=== PATIENT | male | born 1975 | race Caucasian/White ===

== ENCOUNTER 2020-11-11 21:03 | Inpatient (IN) | payer MEDICARE, MEDICAID ==
[~2020-11-11] VITALS: Ht 170.2 cm; Wt 112.7 kg
--- NOTE | 2020-11-11 21:37 | NUR ---
PT BIB EMS AND WAS TOLD INITIAL K+ WAS 6
--- NOTE | 2020-11-11 21:54 | NUR ---
IRMA, CARE PROVIDER, CALLING FOR UPDATE.
[2020-11-11] MEDS ORDERED: acetaminophen 325mg tablet PO PRN (22:35)
[2020-11-11] MEDS ORDERED: ondansetron/PF 4mg/2ml inj IV PRN (22:35)
--- NOTE | 2020-11-11 23:13 | NUR ---
PT UNABLE TO PROVIDE MED REQ & INFO WAS NOT IN THE PAPERWORK FROM [facility]. PT'S MACHINE HELPER IS AT WORK AND DOES NOT HAVE THIS INFO. PHARMACY UPDATED.
--- NOTE | 2020-11-11 23:17 | NUR ---
IRMA MANAGER SOFTWARE # [id number]
--- NOTE | 2020-11-11 23:20 | NUR ---
dr. seals updated regarding pt's med req issue- pt's longwall headgate operator will call back from [phone] tomorrow with list.
--- NOTE | 2020-11-12 00:31 | NUR ---
BG 106
[2020-11-12] MEDS: traMADol 50MG tablet PO PRN ×2 (01:39→19:43)
[2020-11-12] MEDS ORDERED: CARV-50 PO (01:45)
[2020-11-12] MEDS ORDERED: ONDA4TAB6 PO (01:45)
[2020-11-12] MEDS ORDERED: DOXA2TAB2 PO (01:45)
[2020-11-12] MEDS ORDERED: HUM7525 SQ (01:45)
[2020-11-12] MEDS ORDERED: FLUO-12 PO (01:45)
[2020-11-12] MEDS ORDERED: INSU300I3 (01:45)
[2020-11-12] MEDS ORDERED: SYN0.088T PO (01:45)
--- NOTE | 2020-11-12 01:47 | NUR ---
MED REQ COMPLETED
[2020-11-12] MEDS ORDERED: heparin 1,000unit/ml 10ml vial 10 ML IV ONE ×3 (03:05→18:25)
[2020-11-12] MEDS ORDERED: heparin 1,000 units/ml 10ml inj IV ONE ×4 (03:05→18:25)
[2020-11-12] MEDS ORDERED: heparin 1,000 units/ml 10ml inj HE ONE ×4 (03:10→18:30)
[2020-11-12 04:53] LABS: BASOPHILS # (AUTO) 0.1 X10'3 (0-0.2); BASOPHILS % (AUTO) 1.6 % (0-1); EOSINOPHILS # (AUTO) 0.3 X10'3 (0-0.9); EOSINOPHILS % (AUTO) 3.7 % (0-6); LYMPHOCYTES # (AUTO) 1.5 X10'3 (1.1-4.8); LYMPHOCYTES % (AUTO) 20.6 % (21-51); MEAN CORPUSCULAR HEMOGLOBIN 30.4 PG (27.0-31.0); MEAN CORPUSCULAR HGB CONC 32.5 g/dL (33.0-36.5); MEAN CORPUSCULAR VOLUME 93.5 FL (78-98); MEAN PLATELET VOLUME 7.9 FL (7.4-10.4); MONOCYTES % (AUTO) 12.9 % (2-12); NEUTROPHILS # (AUTO) 4.5 X10'3 (1.8-7.7); NEUTROPHILS % (AUTO) 61.2 % (42-75); PLATELET COUNT 219 X10'3 (140-440); RED BLOOD COUNT 3.63 X10'6 (4.70-6.10); RED CELL DISTRIBUTION WIDTH 19.1 % (11.5-14.5); WHITE BLOOD COUNT 7.4 X10'3 (4.5-11.0)
[2020-11-12 05:05] LABS: ALBUMIN 1.9 G/DL (3.4-5.0); ANION GAP 4 (8-16); BLOOD UREA NITROGEN 54 MG/DL (7-18); BUN/CREATININE RATIO 8.8 (5.4-32.0); CALCIUM 8.8 MG/DL (8.5-10.1); CHLORIDE 99 MMOL/L (99-107); CREATININE 6.12 MG/DL (0.60-1.10); GLUCOSE 105 MG/DL (70-104); POTASSIUM 5.3 MMOL/L (3.5-5.1); SODIUM 135 MMOL/L (135-145); TOTAL CARBON DIOXIDE 31.6 MMOL/L (24-32); eGFR 10 ML/MIN
[2020-11-12 05:23] LABS: ANISOCYTOSIS 2+; PLATELET ESTIMATE NORMAL; SCHISTOCYTES FEW
--- NOTE | 2020-11-12 08:15 | NUR ---
Dr Jones called asking why the pt wasn't admitted to a room yet as he needs dialysis today. Let him know they are working on it. He said to call the dialysis nurse when he is heading to a room. Spoke with Jess, nursing supervisor film processing regarding this and she said that it will be at least 2 1/2 hours before there will be a bed available. They are aware that the pt needs dialysis today.
--- NOTE | 2020-11-12 12:29 | NUR ---
good blood return from iv, site appears swollen, iv patent
[2020-11-12 12:30] VITALS: BP 144/99
[2020-11-12] MEDS ORDERED: glucagon, human recombinant 1mg kit SUBCUT PRN (17:10)
[2020-11-12] MEDS ORDERED: dextrose 50%-water 50ml dispensing syringe IV PRN (17:10)
[2020-11-12] MEDS ORDERED: dextrose ORAL solution 15 GM/59 ML bottle PO PRN (17:10)
[2020-11-12] MEDS ORDERED: MESSAGE TO PHARMACY PO ONE (17:10)
--- NOTE | 2020-11-12 17:14 | NUR ---
VIOLETTA STEVENSON : Pt is type 2 diabetic confirmed by daughter today. Please put order in for hyper/hypoglycemic protocol. thanks- alin cerrato ext [phone]
[2020-11-12 18:00] VITALS: BP 116/82
[2020-11-12] MEDS: insulin Lispro (HumaLOG) vial - multi-dose SQ SCH ×2 (19:39→22:06)
[2020-11-12 22:00] VITALS: BP 132/76
[2020-11-12] MEDS: insulin glargine (Lantus) pen - multi-dose SQ SCH (22:03)
[2020-11-13 02:00] VITALS: BP 118/80
--- NOTE | 2020-11-13 04:35 | NUR ---
HD pt, is anuric no void this shift Addendum: 11/13/20 at 0437 by Obed Pineda RN Amended: Links added.
[2020-11-13 06:00] VITALS: BP 123/84
[2020-11-13 07:39] LABS: BASOPHILS # (AUTO) 0.1 X10'3 (0-0.2); BASOPHILS % (AUTO) 1.9 % (0-1); EOSINOPHILS # (AUTO) 0.2 X10'3 (0-0.9); EOSINOPHILS % (AUTO) 3.1 % (0-6); HEMATOCRIT 31.3 % (42.0-52.0); HEMOGLOBIN 10.3 g/dl (14.0-17.9); LYMPHOCYTES # (AUTO) 1.3 X10'3 (1.1-4.8); MEAN CORPUSCULAR HGB CONC 32.9 g/dL (33.0-36.5); MEAN CORPUSCULAR VOLUME 94.3 FL (78-98); MEAN PLATELET VOLUME 8.6 FL (7.4-10.4); MONOCYTES # (AUTO) 0.7 X10'3 (0-0.9); NEUTROPHILS # (AUTO) 4.4 X10'3 (1.8-7.7); PLATELET COUNT 217 X10'3 (140-440); RED BLOOD COUNT 3.32 X10'6 (4.70-6.10); RED CELL DISTRIBUTION WIDTH 19.1 % (11.5-14.5); WHITE BLOOD COUNT 6.8 X10'3 (4.5-11.0)
[2020-11-13] MEDS: FLUoxetine 20mg capsule PO SCH (07:42)
[2020-11-13] MEDS: carVEDilol 12.5mg tablet PO SCH (07:43)
[2020-11-13] MEDS: doxazosin mesylate 2mg tablet PO SCH (07:43)
[2020-11-13 07:58] LABS: ALBUMIN 1.9 G/DL (3.4-5.0); ANION GAP 7 (8-16); BLOOD UREA NITROGEN 51 MG/DL (7-18); BUN/CREATININE RATIO 9.3 (5.4-32.0); CALCIUM 8.2 MG/DL (8.5-10.1); CHLORIDE 98 MMOL/L (99-107); CREATININE 5.51 MG/DL (0.60-1.10); GLUCOSE 364 MG/DL (70-104); MAGNESIUM 1.9 MG/DL (1.5-2.4); PHOSPHORUS 5.3 MG/DL (2.3-4.5); POTASSIUM 5.1 MMOL/L (3.5-5.1); SODIUM 134 MMOL/L (135-145); TOTAL CARBON DIOXIDE 29.3 MMOL/L (24-32); eGFR 11 ML/MIN
[2020-11-13] MEDS ORDERED: levoTHYROXINE 125mcg tablet PO SCH (08:00)
[2020-11-13] MEDS: insulin Lispro (HumaLOG) vial - multi-dose SQ SCH ×3 (08:50→19:13)
[2020-11-13 09:34] LABS: ANISOCYTOSIS 2+; HYPOCHROMASIA 1+; PLATELET ESTIMATE NORMAL; POLYCHROMASIA FEW
[2020-11-13 09:35] LABS: BURR CELLS FEW; SCHISTOCYTES FEW
[2020-11-13] MEDS: levoTHYROXINE sod inj. 100mcg/5 ml vial IV SCH (11:45)
--- NOTE | 2020-11-13 13:18 | NUR ---
DM Consult: Pt admit DX fluid overload hx ESRD on HD and T2DM now insulin dependent per EMR. Per MD note, pt non-compliant w/ HD attendance and A1C this admit over 14. Pt seen by RD for written/verbal DM ed w/ RD contact information provided. Pt reports taking Novolog at meal times, and Trujeo once daily per Rx, checks GLU routinely, and has no issues receiving refills, test strips, or taking meds. Pt reports GLU prior avg at home in 500's w/ A1C in 13's but now recently in 200's; RD notified pt of current A1C over 14 and reviewed diet strategies for optimal carb portion sizing. Pt reports does not eat lunch typically on eats no CHO WB; RD educated pt on importance of consistent CHO intake and nutrition facts label interpretations to ensure appropriate CHO intake as well. Pt reports is trying to get established w/ local MD for DM management. RD encouraged pt to d/w PCP regarding boom tender coverage for DM given as medically able given A1C. Pt reports no further questions/concerns at this time. DESIRAE d/w RN regarding carb controlled diet addition if MD agreeable given hx insulin-dependent DM and GLU 335 at this time only on renal diet. Addendum: 11/13/20 at [address] Amended: Links added.
[2020-11-13 15:00] VITALS: BP 137/78
[2020-11-13] MEDS: traMADol 50MG tablet PO PRN (15:27)
[2020-11-13 18:00] VITALS: BP 119/86
--- NOTE | 2020-11-13 20:40 | NUR ---
Pt BS 55. Immediate re-check was 56. Pt asymptomatic, A&O, requested food. 2-OJ and sandwich given. Re-check in 15min was 63. 25ml D50 given. Re-check 98, will re-check in an hour. Pt also refused Lantus. Addendum: 11/14/20 at 0521 by Alison GERMAN RN Dr. Colin notified of intermittent hypoglycemia and 25ml D50 given x2. No new orders d/t pt not needing additional fluids. During hypoglycemia, pt remained asymptomatic. Food and juice consumed. See MAR.
[2020-11-13] MEDS: insulin glargine (Lantus) pen - multi-dose SQ SCH (21:00)
[2020-11-13] MEDS: dextrose 50%-water 50ml dispensing syringe IV PRN ×2 (21:07→22:41)
[2020-11-14] VITALS (7 sets, daily range): BP systolic 98–143; BP diastolic 61–91
[2020-11-14] MEDS: dextrose ORAL solution 15 GM/59 ML bottle PO PRN ×2 (03:48→04:26)
[2020-11-14] MEDS: dextrose 50%-water 50ml dispensing syringe IV PRN (05:59)
[2020-11-14 07:27] LABS: BASOPHILS # (AUTO) 0.1 X10'3 (0-0.2); BASOPHILS % (AUTO) 1.2 % (0-1); EOSINOPHILS # (AUTO) 0.3 X10'3 (0-0.9); EOSINOPHILS % (AUTO) 3.6 % (0-6); HEMATOCRIT 32.3 % (42.0-52.0); HEMOGLOBIN 10.7 g/dl (14.0-17.9); LYMPHOCYTES # (AUTO) 1.5 X10'3 (1.1-4.8); LYMPHOCYTES % (AUTO) 18.6 % (21-51); MEAN CORPUSCULAR HEMOGLOBIN 30.7 PG (27.0-31.0); MEAN CORPUSCULAR VOLUME 93.1 FL (78-98); MEAN PLATELET VOLUME 8.2 FL (7.4-10.4); MONOCYTES % (AUTO) 12.1 % (2-12); NEUTROPHILS # (AUTO) 5.2 X10'3 (1.8-7.7); NEUTROPHILS % (AUTO) 64.5 % (42-75); PLATELET COUNT 226 X10'3 (140-440); RED BLOOD COUNT 3.47 X10'6 (4.70-6.10); RED CELL DISTRIBUTION WIDTH 19.1 % (11.5-14.5); WHITE BLOOD COUNT 8.1 X10'3 (4.5-11.0)
[2020-11-14 07:43] LABS: ALBUMIN 1.8 G/DL (3.4-5.0); ANION GAP 6 (8-16); BLOOD UREA NITROGEN 60 MG/DL (7-18); CALCIUM 8.6 MG/DL (8.5-10.1); CHLORIDE 97 MMOL/L (99-107); CREATININE 6.01 MG/DL (0.60-1.10); GLUCOSE 116 MG/DL (70-104); MAGNESIUM 1.8 MG/DL (1.5-2.4); PHOSPHORUS 5.7 MG/DL (2.3-4.5); SODIUM 133 MMOL/L (135-145); TOTAL CARBON DIOXIDE 29.7 MMOL/L (24-32); eGFR 10 ML/MIN
[2020-11-14] MEDS: doxazosin mesylate 2mg tablet PO SCH (08:00)
[2020-11-14] MEDS ORDERED: heparin 1,000unit/ml 10ml vial 10 ML IV ONE (08:00)
[2020-11-14] MEDS: FLUoxetine 20mg capsule PO SCH (08:00)
[2020-11-14] MEDS: carVEDilol 12.5mg tablet PO SCH (08:00)
[2020-11-14] MEDS ORDERED: heparin 1,000 units/ml 10ml inj IV ONE (08:00)
[2020-11-14] MEDS ORDERED: heparin 1,000 units/ml 10ml inj HE ONE (08:00)
[2020-11-14] MEDS: levoTHYROXINE sod inj. 100mcg/5 ml vial IV SCH (08:15)
--- NOTE | 2020-11-14 12:50 | NUR ---
page to dr wild: [facility] [id number]: MRI called stating their machine is down, and do not have an ETA for when it'll be fixed whether today or tomorrow. . Per Karen milligan ok to do MRI's outpatient. - [place] ext [phone]
[2020-11-14] MEDS: traMADol 50MG tablet PO PRN (18:54)
[2020-11-14] MEDS: insulin Lispro (HumaLOG) vial - multi-dose SQ SCH ×2 (19:00→20:48)
[2020-11-14] MEDS: insulin glargine (Lantus) pen - multi-dose SQ SCH (20:49)
[2020-11-15 03:00] VITALS: BP 131/77
[2020-11-15 06:00] VITALS: BP 139/92
[2020-11-15 06:52] LABS: BASOPHILS # (AUTO) 0.1 X10'3 (0-0.2); BASOPHILS % (AUTO) 1.7 % (0-1); EOSINOPHILS # (AUTO) 0.3 X10'3 (0-0.9); EOSINOPHILS % (AUTO) 3.9 % (0-6); HEMATOCRIT 31.9 % (42.0-52.0); HEMOGLOBIN 10.4 g/dl (14.0-17.9); LYMPHOCYTES # (AUTO) 1.6 X10'3 (1.1-4.8); LYMPHOCYTES % (AUTO) 18.9 % (21-51); MEAN CORPUSCULAR HEMOGLOBIN 30.7 PG (27.0-31.0); MEAN CORPUSCULAR HGB CONC 32.6 g/dL (33.0-36.5); MEAN CORPUSCULAR VOLUME 94.2 FL (78-98); MEAN PLATELET VOLUME 7.9 FL (7.4-10.4); MONOCYTES # (AUTO) 1.1 X10'3 (0-0.9); MONOCYTES % (AUTO) 12.4 % (2-12); NEUTROPHILS # (AUTO) 5.4 X10'3 (1.8-7.7); NEUTROPHILS % (AUTO) 63.1 % (42-75); PLATELET COUNT 233 X10'3 (140-440); RED BLOOD COUNT 3.39 X10'6 (4.70-6.10); RED CELL DISTRIBUTION WIDTH 19.3 % (11.5-14.5); WHITE BLOOD COUNT 8.5 X10'3 (4.5-11.0)
[2020-11-15 07:24] LABS: ALBUMIN 1.9 G/DL (3.4-5.0); ANION GAP 7 (8-16); BLOOD UREA NITROGEN 48 MG/DL (7-18); BUN/CREATININE RATIO 10.2 (5.4-32.0); CALCIUM 8.7 MG/DL (8.5-10.1); CHLORIDE 103 MMOL/L (99-107); CREATININE 4.71 MG/DL (0.60-1.10); GLUCOSE 81 MG/DL (70-104); MAGNESIUM 1.9 MG/DL (1.5-2.4); PHOSPHORUS 4.8 MG/DL (2.3-4.5); POTASSIUM 4.6 MMOL/L (3.5-5.1); SODIUM 139 MMOL/L (135-145); TOTAL CARBON DIOXIDE 28.8 MMOL/L (24-32); eGFR 14 ML/MIN
[2020-11-15] MEDS: doxazosin mesylate 2mg tablet PO SCH (07:41)
[2020-11-15] MEDS: carVEDilol 12.5mg tablet PO SCH (07:41)
[2020-11-15] MEDS: FLUoxetine 20mg capsule PO SCH (07:41)
[2020-11-15] MEDS: levoTHYROXINE sod inj. 100mcg/5 ml vial IV SCH (07:56)
[2020-11-15] MEDS ORDERED: EPOETIN ALFA-EPBX 20,000 UNIT/ML 1 ML MDV IV ONE (08:55)
[2020-11-15] MEDS ORDERED: heparin 1,000 units/ml 10ml inj IV ONE (08:55)
[2020-11-15] MEDS ORDERED: heparin 1,000unit/ml 10ml vial 10 ML IV ONE (08:55)
[2020-11-15] MEDS ORDERED: albumin (human) 25% 100ml IV 100 ML IV PRN (08:55)
[2020-11-15 09:35] LABS: ANISOCYTOSIS 2+; PLATELET ESTIMATE NORMAL
[2020-11-15 09:36] LABS: HYPOCHROMASIA 1+
[2020-11-15 09:37] LABS: SCHISTOCYTES FEW
--- NOTE | 2020-11-15 15:40 | NUR ---
Initial: Pt admit dx fluid overload and hyperkalemia. Pt missed hemodialysis due to having diarrhea. At latest HD 5 L of fluid was removed. Pt PO intake at meals avg 100% on a carb control, renal diet partially meeting needs. DESIRAE technology risk intern discussed with dietary to send double protein with meals to meet protein/kcal need and for satiety. Last BM 11/15. Will continue to monitor for further intervention. Recommendations 1) Continue with carb control renal diet 2) Bowel care per rx 3) Double protein with meals for satiety/protein needs on HD 4) Wts with HD Addendum: 11/15/20 at 1541 by Terri HANDLEY FIRE CREW SPECIALIST DESIRAE Amended: Links added. Addendum: 11/15/20 at 1544 by Terri HANDLEY FI[employer] CREW SPECIALIST DESIRAE Correction double protein BIDLD for satiety/protein needs Addendum: 11/15/20 at [address] DESIRAE rodríguez w/ [facility] recruiting intern note.
[2020-11-15 18:00] VITALS: BP 150/93
[2020-11-15] MEDS: traMADol 50MG tablet PO PRN (19:48)
[2020-11-15] MEDS: insulin glargine (Lantus) pen - multi-dose SQ SCH (21:00)
[2020-11-15 22:00] VITALS: BP 139/73
[2020-11-16 02:30] VITALS: BP 148/81
--- NOTE | 2020-11-16 06:20 | NUR ---
Patient in room PCU 3023. I have received report from Alison RICO and had the opportunity to ask questions and assume patient care.
[2020-11-16 07:00] VITALS: BP 145/83
[2020-11-16 07:21] LABS: ALBUMIN 2.3 G/DL (3.4-5.0); ANION GAP 11 (8-16); BLOOD UREA NITROGEN 48 MG/DL (7-18); BUN/CREATININE RATIO 10.6 (5.4-32.0); CHLORIDE 99 MMOL/L (99-107); CREATININE 4.52 MG/DL (0.60-1.10); PHOSPHORUS 5.1 MG/DL (2.3-4.5); POTASSIUM 5.5 MMOL/L (3.5-5.1); SODIUM 136 MMOL/L (135-145); TOTAL CARBON DIOXIDE 25.7 MMOL/L (24-32); eGFR 14 ML/MIN
[2020-11-16 07:25] LABS: GLUCOSE 463 MG/DL (70-104)
[2020-11-16] MEDS: carVEDilol 12.5mg tablet PO SCH (07:39)
[2020-11-16] MEDS: FLUoxetine 20mg capsule PO SCH (07:39)
[2020-11-16] MEDS: doxazosin mesylate 2mg tablet PO SCH (07:39)
[2020-11-16] MEDS: levoTHYROXINE sod inj. 100mcg/5 ml vial IV SCH (07:42)
[2020-11-16 07:46] LABS: BASOPHILS # (AUTO) 0.1 X10'3 (0-0.2); BASOPHILS % (AUTO) 1.3 % (0-1); EOSINOPHILS # (AUTO) 0.2 X10'3 (0-0.9); EOSINOPHILS % (AUTO) 2.9 % (0-6); HEMATOCRIT 29.1 % (42.0-52.0); HEMOGLOBIN 9.5 g/dl (14.0-17.9); LYMPHOCYTES # (AUTO) 1.4 X10'3 (1.1-4.8); LYMPHOCYTES % (AUTO) 19.7 % (21-51); MEAN CORPUSCULAR HEMOGLOBIN 30.9 PG (27.0-31.0); MEAN CORPUSCULAR HGB CONC 32.6 g/dL (33.0-36.5); MEAN CORPUSCULAR VOLUME 94.7 FL (78-98); MEAN PLATELET VOLUME 8.1 FL (7.4-10.4); MONOCYTES # (AUTO) 0.8 X10'3 (0-0.9); MONOCYTES % (AUTO) 11.6 % (2-12); NEUTROPHILS # (AUTO) 4.5 X10'3 (1.8-7.7); NEUTROPHILS % (AUTO) 64.5 % (42-75); PLATELET COUNT 240 X10'3 (140-440); RED BLOOD COUNT 3.07 X10'6 (4.70-6.10); RED CELL DISTRIBUTION WIDTH 19.1 % (11.5-14.5); WHITE BLOOD COUNT 6.9 X10'3 (4.5-11.0)
[2020-11-16] MEDS: insulin Lispro (HumaLOG) vial - multi-dose SQ SCH ×4 (07:51→13:31)
--- NOTE | 2020-11-16 07:56 | NUR ---
PAGER ID: [phone] MESSAGE: Re: Jah Mosher. Room: 302. Critical morning blood glucose of 480. Will cover with protocol insulin. -[facility] #[id number] Dr. Barlow paged concerning Pt's morning blood sugar.
[2020-11-16 09:29] LABS: ANISOCYTOSIS 2+; PLATELET ESTIMATE NORMAL
[2020-11-16 09:30] LABS: HYPOCHROMASIA 1+; TARGET CELLS FEW
[2020-11-16 11:00] VITALS: BP 143/82
[2020-11-16] MEDS ORDERED: TRAM50TA2 PO (13:26)
[2020-11-16] MEDS ORDERED: LEVO100T9 PO (13:26)
--- NOTE | 2020-11-16 16:07 | NUR ---
Pt' DC'd home. Pt alert and oriented and vitals WNL. Per Dr. Barlow; pt is stable for DC. IV removed and canula intact. Tele-box removed and returned to tele-tech. DC paperwork printed out and gone over with Pt. Allowed Pt to ask questions concerning DC and then answered them. New prescriptions called into [facility] in [place] [facility]. Pt will continue with dialysis schedule of Saturday, and Saturday. Pt stated that he will make a follow up appt with his PCP. Written order for kidney ultra sound given to Pt to be done Outpatient. Pt's belongings gathered and sent with Pt. Pt wheeled down to lobby in wheelchair where they left in [facility] transit van for home in [place] [facility].
--- NOTE | 2020-11-17 14:25 | NUR ---
CASE MANAGEMENT DISCHARGE FOLLOW UP: T/c to pt, no answer, left message requesting callback.
== END 2020-11-16 16:07 | disposition home health service (06) | DRG 640 ==
LOC: ER 21:04 → ED HOLD 22:33 → PCU 3S 11-12 12:47
PROVIDERS: ADMIT Internal Medicine; ATTEND Family Medicine
PROC: 5A1D70Z Performance of Urinary Filtration, Intermittent, Less than 6 Hours Per Day (ICD-10-PCS; 2020-11-12)
PROC: 5A1D70Z Performance of Urinary Filtration, Intermittent, Less than 6 Hours Per Day (ICD-10-PCS; 2020-11-14)
PROC: 5A1D70Z Performance of Urinary Filtration, Intermittent, Less than 6 Hours Per Day (ICD-10-PCS; principal; 2020-11-15)
DX: E87.5 Hyperkalemia (principal); N18.6 End stage renal disease; I12.0 Hypertensive chronic kidney disease with stage 5 chronic kidney disease or end stage renal disease; E87.70 Fluid overload, unspecified; E03.9 Hypothyroidism, unspecified; E11.22 Type 2 diabetes mellitus with diabetic chronic kidney disease; R19.7 Diarrhea, unspecified; R26.2 Difficulty in walking, not elsewhere classified; E66.9 Obesity, unspecified; Z79.4 Long term (current) use of insulin; Z87.891 Personal history of nicotine dependence; Z91.15 Patient's noncompliance with renal dialysis; Z99.2 Dependence on renal dialysis; Z88.0 Allergy status to penicillin; Z88.2 Allergy status to sulfonamides; Z68.38 Body mass index [BMI] 38.0-38.9, adult; Z79.890 Hormone replacement therapy
CPT/HCPCS: 36415; 70544; 70551; 71045; 72131; 72141; 72146; 72148; 80048; 82948; 83036; 83735; 84100; 84443; 85008; 85025; 93005; 96374; 97110; 97116; 97162; 97530; 99285; G0378; J1644; J1815; Q4081